=== PATIENT | male | born 1970 | race Caucasian/White ===

== ENCOUNTER 2020-11-19 10:09 | Emergency (ER) | payer OTHER, BC ==
[2020-11-19] MEDS ORDERED: ORPHENADRINE 30 MG/ML 2 ML VIAL IVP STA (11:07)
[2020-11-19] MEDS ORDERED: KETOROLAC 15 MG/ML 1 ML VIAL IVP STA (11:07)
[2020-11-19] MEDS ORDERED: HYDROmorphone 0.5 MG/0.5 ML SYRINGE IVP STA (11:07)
[2020-11-19] MEDS ORDERED: ONDANSETRON 4 MG/2 ML VIAL IVP STA (11:07)
--- NOTE | 2020-11-19 12:09 | ED ---
Back Pain HPI - General Chief Complaint: Back Pain/Injury Stated Complaint: Lower back pain, [facility] Time Seen by Provider: 11/19/20 10:23 Source: patient, RN notes reviewed Mode of arrival: ambulatory Limitations: physical limitation - History of Present Illness Initial Comments: This a 50-year-old male presents emergency Department chief complaint of severe low back pain. Patient states he injured it the last week in which she states is very mild but states he reinjured it worsening today. Patient has severe pain and rates on his right leg. Denies any bowel, bladder incontinence retention or saddle anesthesias below sharp. She does. He has sharp pain he rates from his right leg is increasing pain with any movement. Patient states she's never had any like this in the past. - Related Data Previous Rx's Medication Instructions Recorded Cyclobenzaprine [Flexeril] 10 mg PO TID PRN #15 tab 11/19/20 HYDROcodone/APAP 5-325MG [[place] 5] 1 each PO Q6HR PRN #12 tab 11/19/20 Ibuprofen [Motrin] 600 mg PO Q8HR PRN #20 tab 11/19/20 predniSONE 50 mg PO DAILY #5 tab 11/19/20 Allergies Allergy/AdvReac Type Severity Reaction Status Date / Time meperidine HCl [From Demerol] Allergy Unknown Verified 11/19/20 10:51 Review of Systems ROS Statement: Those systems with pertinent positive or pertinent negative responses have been documented in the HPI. ROS Other: All systems not noted in ROS Statement are negative. Past Medical History Past Medical History: No Reported History History of Any Multi-Drug Resistant Organisms: None Reported Additional Past Surgical History / Comment(s): jaw surgery Past Psychological History: No Psychological Hx Reported Smoking Status: Current every day smoker Past Alcohol Use History: Occasional Past Drug Use History: None Reported General Exam Limitations: physical limitation General appearance: alert, in no apparent distress Head exam: Present: atraumatic, normocephalic, normal inspection ENT exam: Present: normal exam, normal oropharynx, mucous membranes moist Neck exam: Present: normal inspection. Absent: tenderness, meningismus, lymphadenopathy Respiratory exam: Present: normal lung sounds bilaterally. Absent: respiratory distress, wheezes, rales, rhonchi, stridor Cardiovascular Exam: Present: regular rate, normal rhythm, normal heart sounds. Absent: systolic murmur, diastolic murmur, rubs, gallop, clicks GI/Abdominal exam: Present: soft, normal bowel sounds. Absent: distended, tenderness, guarding, rebound, rigid Extremities exam: Present: other (Pain with range of motion right leg vascular intact) Back exam: Present: tenderness, muscle spasm, paraspinal tenderness. Absent: full ROM, vertebral tenderness Neurological exam: Present: reflexes normal. Absent: motor sensory deficit Course Vital Signs 11/19/20 10:20 Temperature 97.6 F Pulse Rate 90 Respiratory 18 Rate Blood Pressure 113/78 O2 Sat by Pulse 96 Oximetry Medical Decision Making - Medical Decision Making Patient has acute lumbar strain with radicular symptoms patient CT does show evidence of bulging disc at L3 and L4. Patient will be discharged with steroids, pain medication follow-up. Disposition Clinical Impression: Strain of lumbar region, Lumbar radiculopathy, Bulging lumbar disc Disposition: HOME SELF-CARE Condition: Stable Instructions (If sedation given, give patient instructions): Acute Low Back Pain (ED) Additional Instructions: Please return to the Emergency Department if symptoms worsen or any other concerns. Prescriptions: Cyclobenzaprine [Flexeril] 10 mg PO TID PRN #15 tab PRN Reason: Muscle Spasm Ibuprofen [Motrin] 600 mg PO Q8HR PRN #20 tab PRN Reason: Pain HYDROcodone/APAP 5-325MG [[place] 5] 1 each PO Q6HR PRN #12 tab PRN Reason: Pain predniSONE 50 mg PO DAILY #5 tab Is patient prescribed a controlled substance at d/c from ED?: Yes When asked, does pt state using other controlled substances?: No If prescribed controlled substance>3 days was MAPS reviewed?: Prescribed <3 Days If opioid is for acute pain is fill amount 7 days or less?: Yes If Rx opioid, was Start Talking consent form obtained?: Yes Referrals: None,Stated [Primary Care Provider] - 1-2 days Roman Alonzo DO [Doctor of Osteopathic Medicine] - 1-2 days Time of Disposition: 12:48
--- NOTE | 2020-11-19 12:27 | CT ---
EXAMINATION TYPE: CT lumbar spine wo con DATE OF EXAM: 11/19/2020 12:18 PM COMPARISON: None HISTORY: Low back pain, especially right side. CT DLP: 884.1 mGycm Automated exposure control for dose reduction was used. Unenhanced CT of the lumbar spine was performed. Bone and soft tissue window settings are submitted as well as coronal and sagittal reconstructions. L1-L2: Normal disc space height. No disc herniation protrusion or central stenosis. No facet joint arthropathy. No evidence for foraminal encroachment. L2-L3: Normal disc space height. No disc herniation protrusion or central stenosis. No facet joint arthropathy. No evidence for foraminal encroachment. L3-L4: Vacuum disc changes noted. Mild posterior disc bulge. No evidence for disc herniation or centr al stenosis. Facet joint arthropathy. L4-L5: Moderate degenerative disc disease. Posterior disc bulge. Mild effacement ventral thecal sac. No evidence for herniation or central stenosis. Endplate sclerosis. Mild ventral and dorsal spondylos is. Facet joint arthropathy L5-S1: Normal disc space height. No disc herniation protrusion or central stenosis. No facet joint arthropathy. No evidence for foraminal encroachment. IMPRESSION: Degenerative disc disease with disc bulging at L3-4 and L4-5. No central stenosis or foraminal encroa chment.
[2020-11-19 13:12] VITALS: BP 142/74; PULSE 70; RESP 17; TEMP 98.1
== END 2020-11-19 13:12 | disposition home or self-care (01) ==
LOC: EC 10:09
DX: S39.012A Strain of muscle, fascia and tendon of lower back, initial encounter (principal); M51.16 Intervertebral disc disorders with radiculopathy, lumbar region; F17.200 Nicotine dependence, unspecified, uncomplicated; Z88.5 Allergy status to narcotic agent; X50.1XXA Overexertion from prolonged static or awkward postures, initial encounter; Y99.0 Civilian activity done for income or pay
CPT/HCPCS: 72131; 96374; 96375 ×3; 99284; J2360; J2405; J1885; J1170

== ENCOUNTER 2024-04-10 10:47 | Emergency (ER) | payer BC ==
--- NOTE | 2024-04-10 11:23 | ED ---
Wound/Laceration HPI - General Chief Complaint: Wound/Laceration Stated Complaint: Finger Laceration Time Seen by Provider: 04/10/24 11:22 Source: patient, RN notes reviewed Mode of arrival: ambulatory Limitations: no limitations - History of Present Illness Initial Comments: Patient is a 54-year-old male presented the ER for evaluation of left third di git laceration. Patient states yesterday he was working with a saw when it accidentally kicked back causing him to cut his left third digit. He states he controlled the bleeding with compression. This occurred around 10 AM yesterday. Patient states he kept it wrapped all day and noticed today when changing the bandage he was still bleeding which prompted him to go to the ER for evaluation. He denies any paresthesias or limited range of motion. Tetanus status unknown. Patient denies any other injuries or complaints. - Related Data Previous Rx's Medication Instructions Recorded Cyclobenzaprine [Flexeril] 10 mg PO TID PRN #15 tab 11/19/20 HYDROcodone/APAP 5-325MG [[place] 5] 1 each PO Q6HR PRN #12 tab 11/19/20 Ibuprofen [Motrin] 600 mg PO Q8HR PRN #20 tab 11/19/20 predniSONE 50 mg PO DAILY #5 tab 11/19/20 Amoxic-Pot Clav 875-125Mg 1 tab PO Q12HR #14 tab 04/10/24 [Augmentin 875-125] Allergies Allergy/AdvReac Type Severity Reaction Status Date / Time meperidine HCl [From Demerol] Allergy Unknown Verified 04/10/24 11:16 Review of Systems ROS Statement: Those systems with pertinent positive or pertinent negative responses have been documented in the HPI. ROS Other: All systems not noted in ROS Statement are negative. Past Medical History Past Medical History: No Reported History History of Any Multi-Drug Resistant Organisms: None Reported Additional Past Surgical History / Comment(s): jaw surgery, eye surgery Past Psychological History: No Psychological Hx Reported Smoking Status: Current every day smoker Past Alcohol Use History: Occasional Past Drug Use History: None Reported General Exam Limitations: no limitations General appearance: alert, in no apparent distress Respiratory exam: Present: normal lung sounds bilaterally. Absent: respiratory distress, wheezes, rales, rhonchi, stridor Cardiovascular Exam: Present: regular rate, normal rhythm, normal heart sounds. Absent: systolic murmur, diastolic murmur, rubs, gallop, clicks Extremities exam: Present: normal inspection, full ROM, normal capillary refill, other (2 puffs left radial pulse.). Absent: tenderness, pedal edema, joint swelling, calf tenderness Neurological exam: Present: alert, oriented X3, CN II-XII intact Skin exam: Present: warm, dry, intact, normal color, other (2 cm laceration to left third digit overlying DIP joint. No active bleeding.) Course Vital Signs 04/10/24 11:14 Temperature 98 F Pulse Rate 89 Respiratory 16 Rate Blood Pressure 122/78 O2 Sat by Pulse 98 Oximetry Medical Decision Making - Medical Decision Making Was pt. sent in by a medical professional or institution (, PA, [employer] WORKER, urgent care, hospital, or [facility]...) When possible be specific @ -No Did you speak to anyone other than the patient for history (EMS, parent, family, police, friend...)? What history was obtained from this source @ -No Did you review nursing and triage notes (agree or disagree)? Why? @ -I reviewed and agree with nursing and triage notes Were old charts reviewed (outside hosp., previous admission, EMS record, old EKG, old radiological studies, urgent care reports/EKG's, [facility] records)? Report findings @ -No old charts were reviewed Differential Diagnosis (chest pain, altered mental status, abdominal pain women, abdominal pain men, vaginal bleeding, weakness, fever, dyspnea, syncope, headache, dizziness, GI bleed, back pain, seizure, CVA, palpatations, mental health, musculoskeletal)? @ -Laceration, abrasion, contusion, avulsion, foreign body this list is not meant to be all-inclusive EKG interpreted by me (3pts min.). @ -None done X-rays interpreted by me (1pt min.). @ -Left hand x-ray interpreted me negative for acute fractures or radiopaque foreign bodies. CT interpreted by me (1pt min.). @ -None done U/S interpreted by me (1pt. min.). @ -None done What testing was considered but not performed or refused? (CT, X-rays, U/S, labs)? Why? @ -None What meds were considered but not given or refused? Why? @ -None Did you discuss the management of the patient with other professionals (professionals i.e. DrAlannah, PA, [employer] WORK[employer], lab, RT, psych nurse, social work supervisor, cleat layer, teacher, audit officer, supervisor case loading)? Give summary @ -No Was smoking cessation discussed for >3mins.? @ -No Was critical care preformed (if so, how long)? @ -No Were there social determinants of health that impacted care today? How? (Homelessness, low income, unemployed, alcoholism, drug addiction, transportation, low edu. Level, literacy, decrease access to med. care, skilled nursing, rehab)? @ -No Was there de-escalation of care discussed even if they declined (Discuss DNR or withdrawal of care, Hospice)? DNR status @ -No What co-morbidities impacted this encounter? (DM, HTN, Smoking, COPD, CAD, Cancer, CVA, ARF, Chemo, Hep., AIDS, mental health diagnosis, sleep apnea, morbid obesity)? @ -None Was patient admitted / discharged? Hospital course, mention meds given and route, prescriptions, significant lab abnormalities, going to OR and other pertinent info. @ -Discharge. 54-year-old male presented the ER for evaluation of left third digit laceration. Exam remarkable for a 2 cm laceration to the left third digit there is no active bleeding. Patient is neurovascularly intact. Full active range of motion. X-ray obtained negative for acute process. Tetanus updated. Wound cleaned with iodine and sterile water. As wound occurred over 24 hours prior sutures not placed giving increased infection risk. Augmentin prescribed for infection prophylaxis. Wound care discussed. Strict return parameters discussed. Patient discharged in stable condition with follow-up to PCP. Patient verbally expressed understanding and agreement with care plan. Case discussed with ED attending, Dr. Izquierdo. Undiagnosed new problem with uncertain prognosis? @ -No Drug Therapy requiring intensive monitoring for toxicity (Heparin, Nitro, Insulin, Cardizem)? @ -No Were any procedures done? @ -No Diagnosis/symptom? @ -Laceration Acute, or Chronic, or Acute on Chronic? @ -Acute Uncomplicated (without systemic symptoms) or Complicated (systemic symptoms)? @ -Uncomplicated Side effects of treatment? @ -No Exacerbation, Progression, or Severe Exacerbation? @ -No Poses a threat to life or bodily function? How? (Chest pain, [place], [place], pneumonia, PE, COPD, DKA, ARF, appy, cholecystitis, CVA, Diverticulitis, Homicidal, Suicidal, threat to staff... and all critical care pts) @ -No - Radiology Data Radiology results: report reviewed, image reviewed Disposition Clinical Impression: Laceration Disposition: HOME SELF-CARE Condition: Stable Instructions (If sedation given, give patient instructions): Laceration Without Closure (ED) Additional Instructions: Complete full course of Augmentin. Keep area clean and dry. Return to the ER for any new or worsening concerns. Prescriptions: Amoxic-Pot Clav 875-125Mg [Augmentin 875-125] 1 tab PO Q12HR #14 tab Is patient prescribed a controlled substance at d/c from ED?: No Referrals: None,Stated [Primary Care Provider] - 1-2 days Forms: [facility] PCPs Time of Disposition: 12:16
[2024-04-10] MEDS: DIPH,PERTUS(ACELL)TETVAC-LF 0.5 ML VIAL IM ONE (11:24)
--- NOTE | 2024-04-10 12:01 | XR ---
EXAMINATION TYPE: XR hand complete LT DATE OF EXAM: 04/10/2024 11:56 AM COMPARISON: None. CLINICAL INDICATION: Male, 54 years old with history of third digit wound, pain TECHNIQUE: Frontal, lateral and oblique images of the left hand are obtained. FINDINGS: There is no acute fracture/dislocation evident in the left hand with particular attention to the third finger at area of clinical concern. The joint spaces in the left hand appear within norm al limits. Punctate density distal third finger dorsal surface could reflect nail foreign body. IMPRESSION: There is no acute fracture or dislocation in the left hand. [facility], , 04/10/2024 11:59 AM
[2024-04-10 12:52] VITALS: BP 120/76; PULSE 82; RESP 15; TEMP 97.6
== END 2024-04-10 12:51 | disposition home or self-care (01) ==
LOC: EC 10:47
DX: S61.213A Laceration without foreign body of left middle finger without damage to nail, initial encounter (principal); F17.200 Nicotine dependence, unspecified, uncomplicated; Z88.5 Allergy status to narcotic agent; Z23 Encounter for immunization; W31.2XXA Contact with powered woodworking and forming machines, initial encounter
CPT/HCPCS: 12001; 90471; 90715; 99283